=== PATIENT | female | born 1990 | race Caucasian/White ===

== ENCOUNTER 2016-05-21 20:10 | Emergency (ER) | payer MEDICAID ==
[2016-05-21 20:25] VITALS: BP 116/70
[2016-05-21] MEDS ORDERED: FAMOTIDINE 20 MG TABLET PO ONE (20:27)
[2016-05-21] MEDS ORDERED: DIPHENHYDRAMINE HCL 25 MG CAPSULE PO ONE (20:27)
[2016-05-21] MEDS ORDERED: DEXAMETHASONE SOD PHOS INJ 10 MG/1 ML VIAL IM ONE (20:28)
--- NOTE | 2016-05-21 20:30 | ER Document Report ---
ED Medical Screen (RME) - General Chief Complaint: Rash Stated Complaint: RASH Mode of Arrival: Ambulatory Information source: Patient Notes: Patient presents to the emergency department with reports of tick bite last week abscess on her stomach and hives that started Saturday. She reports vomited twice today. Denies nausea at this time. Denies history of allergies I have greeted and performed a rapid initial assessment of this patient. A comprehensive ED assessment and evaluation of the patient, analysis of test results and completion of the medical decision making process will be conducted by additional ED providers. Physical Exam - Vital signs Vitals: Temp Pulse Resp BP Pulse Ox 98.2 F 117 H 18 116/70 100 05/21/16 20:23 05/21/16 20:23 05/21/16 20:23 05/21/16 20:23 05/21/16 20:23 Course - Vital Signs Vital signs: Temp Pulse Resp BP Pulse Ox 98.2 F 117 H 18 116/70 100 05/21/16 20:23 05/21/16 20:23 05/21/16 20:23 05/21/16 20:23 05/21/16 20:23
[2016-05-22] MEDS ORDERED: DIPHENHYDRAMINE HCL 25 MG CAPSULE ONE (00:10)
[2016-05-22] MEDS ORDERED: DEXAMETHASONE SOD PHOSPHATE INJ 4 MG/1 ML VIAL ONE ×2 (00:11)
[2016-05-22] MEDS ORDERED: DIPHENHYDRAMINE HCL 25 MG CAPSULE PO ONE (00:15)
[2016-05-22] MEDS ORDERED: FAMOTIDINE 20 MG TABLET PO ONE (00:15)
[2016-05-22] MEDS ORDERED: DEXAMETHASONE SOD PHOS INJ 10 MG/1 ML VIAL IM ONE (00:15)
[2016-05-22] MEDS ORDERED: METHYLPREDNISOLONE INJ 125 MG/2 ML SDV IM ONE (00:44)
[2016-05-22] MEDS ORDERED: DIPHENHYDRAMINE HCL 50 MG/ML VIAL IM ONE (00:44)
[2016-05-22] MEDS ORDERED: SULFAMETHOXAZOLE/TRIMETHOPRIM 800-160 MG TABLET PO ONE (00:44)
[2016-05-22] MEDS ORDERED: HYDROCODONE/ACETAMINOPHEN 5-325 MG 6 TAB/DSPK PO PRN (00:44)
--- NOTE | 2016-05-22 00:44 | ER Document Report ---
ED Skin Rash/Insect Bite/Abscs - General Chief Complaint: Rash Stated Complaint: RASH Time seen by provider: 00:38 Mode of Arrival: Ambulatory Information source: Patient TRAVEL OUTSIDE OF THE [place] IN LAST 30 DAYS: No - HPI Patient complains to provider of: Skin rash/lesion, Tender/swollen area, Tick bite Onset: Other - 5 days Onset/Duration: Gradual, Persistent Quality of pain: Achy Severity: Mild Skin Character: Abscess, Lesion, Rash, Urticarial Skin Temperature: Warm Quality of rash: Itchy, Painful Identify cause: No Similar symptoms previously: No Recently seen / treated by doctor: No Notes: Patient is a 25 year old female who presents to the ER c/o itchy rash with hives diffusely, tick bite to left knee, and tender erythematous swelling to left abdominal wall, symptoms have been worsening over the past 5 days, no new detergents, lotions, foods, no h/o similar, patient reports recent tick bite to left knee, tick was not engorged, she does not believe it was attached for more then a few minutes, no fever, no injury - Related Data Allergies/Adverse Reactions: No Known Allergies Allergy (Verified 05/22/16 00:05) Past Medical History - General Information source: Patient - Social History Smoking Status: Unknown if Ever Smoked Family History: Reviewed & Not Pertinent Renal/ Medical History: Denies: Hx Peritoneal Dialysis Review of Systems - Review of Systems Constitutional: No symptoms reported EENT: No symptoms reported Cardiovascular: No symptoms reported Respiratory: No symptoms reported Gastrointestinal: No symptoms reported Genitourinary: No symptoms reported Female Genitourinary: No symptoms reported Musculoskeletal: No symptoms reported Skin: See HPI Hematologic/Lymphatic: No symptoms reported Neurological/Psychological: No symptoms reported -: Yes All other systems reviewed and negative Physical Exam - Vital signs Vitals: Temp Pulse Resp BP Pulse Ox 98.2 F 117 H 18 116/70 100 05/21/16 20:23 05/21/16 20:23 05/21/16 20:23 05/21/16 20:23 05/21/16 20:23 Interpretation: Normal - General General appearance: Appears well, Alert - HEENT Head: Normocephalic, Atraumatic Eyes: Normal Conjunctiva: Normal Extraocular movements intact: Yes Eyelashes: Normal Pupils: PERRL Pharynx: Normal Neck: Normal - Respiratory Respiratory status: No respiratory distress - Cardiovascular Rhythm: Regular - Abdominal Inspection: Other - 3cm tender, induration area to left abdominal wall, firm, no fluctuance, no drainage - Back Back: Normal, Nontender - Extremities General upper extremity: Normal ROM General lower extremity: Normal ROM - Neurological Neuro grossly intact: Yes Cognition: Normal Orientation: AAOx4 - Psychological Associated symptoms: Normal affect, Normal mood - Skin Skin Temperature: Warm Skin Moisture: Dry Skin irregularity: Abscess, Erythema Location of irregularity: Generalized, Abdomen, Extremities Character of irregularity: Erythematous Irregularity with: Induration Notes: left abdominal wall early abscess, diffuse urticarial rash, scabbed 2mm lesion to left medial knee Course - Vital Signs Vital signs: Temp Pulse Resp BP Pulse Ox 98.2 F 117 H 18 116/70 100 05/21/16 20:23 05/21/16 20:23 05/21/16 20:23 05/21/16 20:23 05/21/16 20:23 Discharge - Discharge Clinical Impression: Abdominal wall abscess, Urticaria Tick bite of knee Qualifiers: Encounter type: initial encounter Laterality: left Qualified Code(s): S80.262A - Insect bite (nonvenomous), left knee, initial encounter Condition: Stable Disposition: HOME, SELF-CARE Instructions: Abscess ([facility]), Oral Narcotic Medication ([facility]), Trimethoprim- Sulfa ([facility]), Acute Urticaria ([facility]), Tick Bites ([facility]) Additional Instructions: Follow up with your primary care provider in 2-3 days. Return to the ER immediately if symptoms worsen or any additional concerns. Prescriptions: Diphenhydramine HCl [Benadryl 25 Mg Capsule] 25 mg PO Q6 #30 capsule Famotidine [Pepcid 20 mg Tablet] 20 mg PO BID #12 tablet Hydrocodone/Acetaminophen [Hydrocodon-Acetaminophen 5-325] 1 each PO Q6 #20 tablet Prednisone 40 mg PO DAILY #8 tablet Sulfamethoxazole/Trimethoprim [Bactrim Ds Tablet] 1 each PO BID #20 tablet
== END 2016-05-22 00:55 | disposition home or self-care (01) ==
LOC: ER 20:10
DX: S80.262A Insect bite (nonvenomous), left knee, initial encounter (principal); W57.XXXA Bitten or stung by nonvenomous insect and other nonvenomous arthropods, initial encounter; L02.211 Cutaneous abscess of abdominal wall; L50.9 Urticaria, unspecified
CPT/HCPCS: 99282; 96372; J3490 ×2; J1100

== ENCOUNTER 2017-01-11 17:04 | Inpatient (IN) | payer SELFPAY ==
[2017-01-11] MEDS ORDERED: NORMAL SALINE 1000 ML 1,000 ML IV ONE ×3 (19:19→22:16)
[2017-01-11] MEDS ORDERED: ONDANSETRON HCL INJ/PF 4 MG/2 ML SDV IV ONE ×2 (19:19→23:12)
[2017-01-11] MEDS ORDERED: KETOROLAC TROMETHAMINE INJ/PF 30 MG/1 ML SDV IV ONE (19:19)
--- NOTE | 2017-01-11 19:21 | ER Document Report ---
ED GI/ - General Chief Complaint: Groin Pain Stated Complaint: PELVIC PAIN, BLURRED VISION Time Seen by Provider: 01/11/17 19:14 Notes: Patient is a 26-year-old female that comes emergency department for chief complaint of chills, 2 episodes of vomiting, and lower abdominal pain on both sides that wraps around towards her back. She states when she stands her vision gets blurry and she stood and passed out earlier. She denies headache or head injury. She denies dysuria, vaginal discharge, she states she has not been sexually for 2 months. LMP within the past month. She had a normal bowel movement earlier today. No hematemesis. Only past medical history reported is tonsillectomy and orthopedic surgery. Takes no daily medications. TRAVEL OUTSIDE OF THE [place] IN LAST 30 DAYS: No - Related Data Allergies/Adverse Reactions: No Known Allergies Allergy (Verified 05/22/16 00:05) Past Medical History - General Information source: Patient - Social History Smoking Status: Never Smoker Drug Abuse: None Lives with: Family Family History: Reviewed & Not Pertinent - Medical History Medical History: Negative Renal/ Medical History: Denies: Hx Peritoneal Dialysis Surgical Hx: Negative - Immunizations Immunizations up to date: Yes Hx Diphtheria, Pertussis, Tetanus Vaccination: Yes Review of Systems - Review of Systems Constitutional: No symptoms reported EENT: No symptoms reported Cardiovascular: No symptoms reported Respiratory: No symptoms reported Gastrointestinal: See HPI Genitourinary: See HPI Female Genitourinary: See HPI Musculoskeletal: No symptoms reported Skin: No symptoms reported Hematologic/Lymphatic: No symptoms reported Neurological/Psychological: No symptoms reported Physical Exam - Vital signs Vitals: Temp Pulse Resp BP 100.3 F 118 H 18 118/77 01/11/17 17:24 01/11/17 17:24 01/11/17 17:24 01/11/17 17:24 Interpretation: Normal - General General appearance: Other - patient alert but slightly pale and ill appearing - HEENT Head: Normocephalic, Atraumatic Eyes: Normal Pupils: PERRL - Respiratory Respiratory status: No respiratory distress Chest status: Nontender Breath sounds: Normal Chest palpation: Normal - Cardiovascular Rhythm: Regular, Tachycardia Heart sounds: Normal auscultation, S1 appreciated, S2 appreciated Murmur: No - Abdominal Inspection: Normal Distension: No distension Bowel sounds: Normal Tenderness: Tender - Tender in the lower abdomen/pelvic region bilaterally, otherwise soft and benign abdomen. No: Guarding Organomegaly: No organomegaly - Genitourinary External exam: Normal Speculum exam: Vaginal discharge - Moderately large amount of discolored vaginal discharge. No: Cervix open Vaginal bleeding: None Bimanuel exam: Cervical motion tender - Back Back: Normal, Nontender - Extremities General upper extremity: Normal inspection, Nontender, Normal color, Normal ROM , Normal temperature General lower extremity: Normal inspection, Nontender, Normal color, Normal ROM , Normal temperature, Normal weight bearing. No: Yari's sign - Neurological Neuro grossly intact: Yes Cognition: Normal Orientation: AAOx4 [place] Coma Scale Eye Opening: Spontaneous [place] Coma Scale Verbal: Oriented Fran Coma Scale Motor: Obeys Commands Fran Coma Scale Total: 15 Speech: Normal Motor strength normal: LUE, RUE, LLE, RLE Sensory: Normal - Psychological Associated symptoms: Normal affect, Normal mood - Skin Skin Temperature: Warm Skin Moisture: Dry Skin Color: Pale Course - Re-evaluation Re-evalutation: Patient initially with low-grade fever, tachycardic at about 120, has bilateral lower abdominal/pelvic tenderness on examination, no guarding on either particular side. She is generally ill-appearing. CBC shows leukocytosis at 16.5 with elevation of neutrophils but no bandemia. Chemistry generally unremarkable. Urinalysis shows moderate leukocyte esterase and a few white blood cells and is otherwise unremarkable. She has no CVA tenderness. I suspect a pelvic source. Pelvic examination shows vaginal discharge with cervical motion tenderness. 4+ white blood cells. Urine Rocephin, doxycycline. Ultrasound will be performed to rule out tubo-ovarian abscess or other concerning surgical abnormality. Patient given pain medication for procedure to be performed. She is borderline hypotensive but her heart rate has significantly improved and her blood pressure is not concerning the low. She states she does feel improved. Fever has resolved after Toradol. Discussed patient with Dr. Niño. [employer]IVER will be consulted after ultrasound. Ultrasound showing no tubo-ovarian abscess or other surgical abnormality. Called and spoke with Dr. Pena, gynecology on-call, because of patient's fever, initial tachycardia, borderline hypotension, passing out at home, and obvious PID infection patient will be admitted to the hospital for additional treatment. Patient states full agreement with this plan, states she is uncomfortable going home. - Vital Signs Vital signs: Temp Pulse Resp BP Pulse Ox 97.7 F 90 16 105/61 100 01/12/17 03:46 01/12/17 03:46 01/12/17 03:46 01/12/17 03:46 01/12/17 03:46 - Laboratory Result Diagrams: 01/11/17 19:45 01/11/17 19:45 Laboratory results interpreted by me: 01/11/17 01/11/17 01/11/17 19:45 20:10 20:55 WBC 16.5 H Plt Count 123 L Seg Neutrophils % 85.7 H Lymphocytes % 8.1 L Absolute Neutrophils 14.1 H Urine Protein 30 H Urine Ketones 80 H Ur Leukocyte Esterase MODERATE H N.gonorrhoeae DNA (PCR) DETECTED H Discharge - Discharge Clinical Impression: PID (acute pelvic inflammatory disease), Gonorrhea, Tachycardia Fever Qualifiers: Fever type: unspecified Qualified Code(s): R50.9 - Fever, unspecified Condition: Stable Disposition: ADMITTED INPATIENT Admitting Provider: [facility] Admitted: Telemetry
[2017-01-11 20:16] LABS: ABSOLUTE LYMPHOCYTES (AUTO) 1.3 10^3/uL (0.5-4.7); ABSOLUTE NEUT (AUTO) 14.1 10^3/uL (1.7-8.2); BASOPHILS % (AUTO) 0.3 % (0-2); HEMATOCRIT 36.2 % (36.0-47.0); HGB HCT DIFFERENCE -0.2; LYMPHOCYTES % (AUTO) 8.1 % (13-45); MEAN CORPUSCULAR HEMOGLOBIN 28.7 pg (27.0-33.4); MEAN CORPUSCULAR HGB CONC 33.2 g/dL (32.0-36.0); MEAN CORPUSCULAR VOLUME 86 fl (80-97); MONOCYTES % (AUTO) 5.9 % (3-13); RED BLOOD COUNT 4.19 10^6/uL (3.72-5.28); RED CELL DISTRIBUTION WIDTH 13.4 % (11.5-14.0); SEGMENTED NEUTROPHILS % (AUTO) 85.7 % (42-78); WHITE BLOOD COUNT 16.5 10^3/uL (4.0-10.5)
[2017-01-11 20:30] LABS: ALANINE AMINOTRANSFERASE 26 U/L (9-52); ALBUMIN 4.5 g/dL (3.5-5.0); ALKALINE PHOSPHATASE 73 U/L (38-126); ANION GAP 15 (5-19); ASPARTATE AMINO TRANSFERASE 21 U/L (14-36); BILIRUBIN,DIRECT 0.4 mg/dL (0.0-0.4); BILIRUBIN,TOTAL 1.2 mg/dL (0.2-1.3); BLOOD UREA NITROGEN 11 mg/dL (7-20); CALCIUM 9.3 mg/dL (8.4-10.2); CARBON DIOXIDE 23 mmol/L (22-30); CHLORIDE 103 mmol/L (98-107); CREATININE RESULT 0.69 mg/dL (0.52-1.25); GLUCOSE 85 mg/dL (75-110); POTASSIUM 3.9 mmol/L (3.6-5.0); TOTAL PROTEIN 7.2 g/dL (6.3-8.2)
[2017-01-11] MEDS ORDERED: CEFTRIAXONE 1 GM/D5W RTU 1 GM/50 ML RTUPB IV ONE (21:06)
[2017-01-11] MEDS ORDERED: DOXYCYCLINE HYCLATE 100 MG TABLET PO ONE (21:07)
[2017-01-11 21:34] LABS: APPEARANCE,URINE SLIGHTLY-CLOUDY; BILIRUBIN,URINE NEGATIVE (NEGATIVE); GLUCOSE, URINE NEGATIVE (NEGATIVE); KETONES,URINE 80 mg/dL (NEGATIVE); LEUKOCYTE ESTERASE,URINE MODERATE (NEGATIVE); NITRITE,URINE NEGATIVE (NEGATIVE); PROTEIN,URINE 30 mg/dL (NEGATIVE); URINE SPECIFIC GRAVITY 1.025; UROBILINOGEN,URINE NEGATIVE mg/dL (<2.0)
[2017-01-11 22:02] LABS: CHLAM PCR NOT DETECTED (NOT DETECT)
[2017-01-11] MEDS ORDERED: FENTANYL CITRATE INJ/PF 100 MCG/2 ML AMPUL IV ONE ×2 (23:12→23:14)
--- NOTE | 2017-01-12 00:45 | RADIOLOGY REPORT (SQ) ---
EXAM DESCRIPTION: U/S NON OB PEL TV W/DOPPLER CLINICAL HISTORY: 26 years Female, ? TOA with pelvic inflammatory disease COMPARISON: None. TECHNIQUE: Complete transvaginal obstetrical ultrasound.] Doppler imaging of the ovaries. FINDINGS: Uterus measures 8.9 x 6.7 x 4.4 cm. Endometrium measures 0.2 cm. Small amount of fluid in the endometrial canal. The cervix measures 2.7 cm. No myometrial abnormalities. The right ovary measures 3.7 x 2.3 x 2.9 cm. The left ovary measures 3.5 x 2.9 x 2.4 cm. Color and spectral Doppler images demonstrate flow in the ovaries bilaterally. Small amount of free pelvic fluid. No adnexal mass or fluid collection identified. IMPRESSION: 1. Tiny amount of fluid in the endometrium. This could be related to menses, cervical stenosis, or inflammatory/infection. 2. Small amount of free pelvic fluid. No well-circumscribed abscess identified.
[2017-01-12] MEDS ORDERED: ACETAMINOPHEN 325 MG TABLET PO PRN (03:31)
[2017-01-12] MEDS ORDERED: OXYCODONE-ACETAMINOPHEN 5-325 MG TABLET PO PRN (03:31)
[2017-01-12] MEDS ORDERED: IBUPROFEN 800 MG TABLET PO PRN (03:32)
[2017-01-12] MEDS ORDERED: CEFTRIAXONE 1 GM/D5W RTU 1 GM/50 ML RTUPB IV SCH (04:00)
[2017-01-12] MEDS ORDERED: INFLUENZA ADLT QUAD (36MOS+) 2017-18 VAC 0.5 ML SYR IM PRN (04:15)
[2017-01-12] MEDS: DEXTROSE 5%-LACTATED RINGERS 1,000 ML IV PRN ×2 (04:28→14:56)
[2017-01-12] MEDS: METRONIDAZOLE 500 MG/NS RTU 100 ML IV SCH ×2 (05:33→17:05)
[2017-01-12] MEDS: CEFTRIAXONE 1 GM/D5W RTU 1 GM/50 ML RTUPB IV SCH ×2 (08:49→22:18)
[2017-01-12] MEDS ORDERED: DOXYCYCLINE HYCLATE INJ 100 MG VIAL IV SCH (16:30)
[2017-01-12] MEDS ORDERED: ONDANSETRON HCL INJ/PF 4 MG/2 ML SDV IV PRN (16:32)
--- NOTE | 2017-01-12 16:38 | PDOC PROGRESS REPORT ---
Subjective-OB Subjective: Post Delivery Day: 26 year old. Denies any needs at this time. Pain improved. Feels nauseous. Physical Exam (OB) Vital Signs: Temp Pulse Resp BP Pulse Ox 98.0 F 74 16 104/70 100 01/12/17 16:13 01/12/17 16:13 01/12/17 16:13 01/12/17 16:13 01/12/17 16:13 - General General Appearance: Appears well, Alert - Abdomen Hernia Present: No Assessment and Plan(PN) - Assessment and Plan (1) Gonorrhea Is this a current diagnosis for this admission?: Yes Plan: Adequately treated with Rocephin. (2) PID (acute pelvic inflammatory disease) Is this a current diagnosis for this admission?: Yes Plan: Doxycycline 100mg IV bid added. Since pain has improved, consider d/c in AM on continued po antibiotics.
[2017-01-12] MEDS ORDERED: ONDANSETRON HCL INJ/PF 4 MG/2 ML SDV ONE (16:58)
[2017-01-12] MEDS ORDERED: DOXYCYCLINE HYCLATE INJ 100 MG VIAL IV PRN (17:06)
[2017-01-12] MEDS ORDERED: DOXYCYCLINE HYCLATE INJ 100 MG VIAL ONE (19:02)
[2017-01-12] MEDS: DOXYCYCLINE HYCLATE 100 MG in DEXTROSE 5%-WATER 250 ML IV SCH (19:59)
[2017-01-13] MEDS: DEXTROSE 5%-LACTATED RINGERS 1,000 ML IV PRN (00:28)
[2017-01-13] MEDS ORDERED: DOXYCYCLINE HYCLATE INJ 100 MG VIAL ONE (02:52)
[2017-01-13] MEDS: METRONIDAZOLE 500 MG/NS RTU 100 ML IV SCH (05:32)
[2017-01-13 06:33] LABS: HEMATOCRIT 28.7 % (36.0-47.0); HGB HCT DIFFERENCE 1.3; MEAN CORPUSCULAR HGB CONC 34.7 g/dL (32.0-36.0); MEAN CORPUSCULAR VOLUME 87 fl (80-97); RED BLOOD COUNT 3.32 10^6/uL (3.72-5.28); RED CELL DISTRIBUTION WIDTH 13.4 % (11.5-14.0); WHITE BLOOD COUNT 4.9 10^3/uL (4.0-10.5)
[2017-01-13] MEDS: DOXYCYCLINE HYCLATE 100 MG in DEXTROSE 5%-WATER 250 ML IV SCH (06:44)
--- NOTE | 2017-01-13 08:29 | PDOC PROGRESS REPORT ---
Subjective Progress Note for:: 01/13/17 Physical Exam - Physical Exam Vital Signs: Temp Pulse Resp BP Pulse Ox 98.3 F 63 16 101/71 100 01/13/17 07:39 01/13/17 07:39 01/13/17 07:39 01/13/17 07:39 01/13/17 07:39 Intake & Output 01/12/17 01/13/17 01/14/17 06:59 06:59 06:59 Intake Total 480 Balance 480 General appearance: PRESENT: no acute distress GI/Abdominal exam: PRESENT: normal bowel sounds, soft. ABSENT: distended, guarding, mass, organolmegaly, rebound, tenderness Neurological exam: PRESENT: alert Psychiatric exam: PRESENT: appropriate affect - Gynecological Exam Labia: normal Urethra: normal Introitus: normal Perineum: normal Vagina: normal Cervix: normal Cervix: normal Uterus: normal Adhexa: normal Result Laboratory Results: 01/13/17 06:21 01/13/17 06:21 WBC 4.9 RBC 3.32 L Hgb 10.0 L Hct 28.7 L MCV 87 MCH 30.0 MCHC 34.7 RDW 13.4 Plt Count 90 L Impressions: Transvaginal US 01/11/17 23:12 IMPRESSION: 1. Tiny amount of fluid in the endometrium. This could be related to menses, cervical stenosis, or inflammatory/infection. 2. Small amount of free pelvic fluid. No well-circumscribed abscess identified. Assessment & Plan - Diagnosis (1) Fever Qualifiers: Fever type: unspecified Qualified Code(s): R50.9 - Fever, unspecified (2) Gonorrhea Is this a current diagnosis for this admission?: Yes (3) PID (acute pelvic inflammatory disease) Is this a current diagnosis for this admission?: Yes - Time Time Spent with patient: 15-24 minutes - Plan Summary Plan Summary: d/c f/u 2 weeks
[2017-01-13] MEDS: CEFTRIAXONE 1 GM/D5W RTU 1 GM/50 ML RTUPB IV SCH (09:01)
[2017-01-13 09:30] VITALS: BP 118/77
--- NOTE | 2017-01-13 09:53 | DISCHARGE SUMMARY E ---
Discharge Summary NAME: JOSEPH HOPE : 1990 AGE: 26Y ADMITTED: 01/12/2017 DISCHARGED: 01/13/2017 ADMISSION DIAGNOSES: 1. Pelvic inflammatory disease. 2. Salpingitis with positive Gonorrhea. DISCHARGE DIAGNOSES: 1. Pelvic inflammatory disease. 2. Salpingitis with positive Gonorrhea. SUMMARY: The patient is a 26-year-old female admitted from the ER with an elevated white count of 16.5 and positive and Gonorrhea, admitted for presumptive diagnosis of salpingitis. The patient was placed on IV antibiotics and rapidly defervesced and has remained afebrile throughout her hospital course. Her white count on January 13 is 4.9. Physical exam is completely normal. The patient is being discharged with followup in 2 weeks. Discharged on Motrin 800 three times a day p.r.n.; Vibramycin 100 twice a day for 14 days and Flagyl 500 b.i.d. for 14 days. She was also given post hospital instructions. DICTATING PHYSICIAN: Ron RICHARDSON M.D. [id number] PHY#: [id number] ID: [id number] JOB#: [id number] ACCT: [id number] cc:Ron RICHARDSON M.D. >
[2017-01-13] MEDS ORDERED: DOXYCYCLINE HYCLATE 100 MG TABLET PO SCH ×2 (10:00→22:00)
== END 2017-01-13 11:22 | disposition home or self-care (01) | DRG 759 ==
LOC: ER 17:04 → EH 01-12 01:09 → 5 01-12 02:48 → 2N 01-12 03:42
PROVIDERS: ADMIT Obstetrics & Gynecology Gynecology; ATTEND Obstetrics & Gynecology Gynecology
PROC: 3E0234Z Introduction of Serum, Toxoid and Vaccine into Muscle, Percutaneous Approach (ICD-10-PCS; principal; 2017-01-13)
DX: A54.24 Gonococcal female pelvic inflammatory disease (principal); Z23 Encounter for immunization
CPT/HCPCS: 36415; 76830; 80053; 81001; 81025; 83605; 85025; 85027; 87040; 87210; 87491; 87591; 90686; 93976; 96361; 96365; 96375; 99285; J0696; J1885; J2405; J3010; J3490; J7030; J7060

== ENCOUNTER 2017-11-13 12:17 | Emergency (ER) | payer SELFPAY ==
[2017-11-13] MEDS ORDERED: NORMAL SALINE 1000 ML 1,000 ML IV ONE (13:39)
[2017-11-13] MEDS ORDERED: NORMAL SALINE 1000 ML 1,000 ML IV PRN (13:39)
[2017-11-13] MEDS ORDERED: ACETAMINOPHEN 325 MG TABLET PO ONE (13:40)
--- NOTE | 2017-11-13 13:41 | ER Document Report ---
ED Medical Screen (RME) - General Chief Complaint: Chest Pain Stated Complaint: CHEST PAIN Time Seen by Provider: 11/13/17 13:34 Notes: 27 years old female presents today with multiple complaints, 2 weeks ago apparently she was walking to the bathroom and passed out and woke up with sweating according to her. Witnessed by her daughter. Since then having general malaise fatigue weakness tiredness nausea difficulty in breathing. Exertional shortness notes breath and fatigue weakness. TRAVEL OUTSIDE OF THE [place] IN LAST 30 DAYS: No - Related Data Allergies/Adverse Reactions: No Known Allergies Allergy (Verified 11/13/17 12:22) Past Medical History Renal/ Medical History: Denies: Hx Peritoneal Dialysis Past Surgical History: Reports: Hx Orthopedic Surgery - Rt ankle; Lt elbow, Hx Tonsillectomy - Immunizations Immunizations up to date: Yes Hx Diphtheria, Pertussis, Tetanus Vaccination: Yes History of Influenza Vaccine for 11/2016 - 04/2017 Season: No Physical Exam - Vital signs Vitals: Temp Pulse Resp BP Pulse Ox 97.6 F 91 18 125/79 100 11/13/17 12:30 11/13/17 12:30 11/13/17 12:30 11/13/17 12:30 11/13/17 12:30 Course - Vital Signs Vital signs: Temp Pulse Resp BP Pulse Ox 97.6 F 91 18 125/79 100 11/13/17 12:30 11/13/17 12:30 11/13/17 12:30 11/13/17 12:30 11/13/17 12:30
--- NOTE | 2017-11-13 14:21 | RADIOLOGY REPORT (SQ) ---
EXAM DESCRIPTION: CHEST 2 VIEWS COMPLETED DATE/TIME: 11/13/2017 2:14 pm REASON FOR STUDY: Shortness of breath COMPARISON: None. EXAM PARAMETERS: NUMBER OF VIEWS: two views TECHNIQUE: Digital Frontal and Lateral radiographic views of the chest acquired. RADIATION DOSE: NA LIMITATIONS: none FINDINGS: LUNGS AND PLEURA: No opacities, masses or pneumothorax. No pleural effusion. MEDIASTINUM AND HILAR STRUCTURES: No masses or contour abnormalities. HEART AND VASCULAR STRUCTURES: Heart normal size. No evidence for failure. BONES: No acute findings. HARDWARE: None in the chest. OTHER: No other significant finding. IMPRESSION: NO ACUTE RADIOGRAPHIC FINDING IN THE CHEST. TECHNICAL DOCUMENTATION: JOB ID: [id number] [employer]- All Rights Reserved Reading location - IP/workstation name: [email or web address]
--- NOTE | 2017-11-13 14:44 | RADIOLOGY REPORT (SQ) ---
EXAM DESCRIPTION: CT HEAD WITHOUT COMPLETED DATE/TIME: 11/13/2017 2:32 pm REASON FOR STUDY: Headache COMPARISON: None. TECHNIQUE: Axial images acquired through the brain without intravenous contrast. Images reviewed wi th bone, brain and subdural windows. Additional sagittal and coronal reconstructions were generated. Images stored on PACS. All CT scanners at this facility use dose modulation, iterative reconstruction, and/or weight based d osing when appropriate to reduce radiation dose to as low as reasonably achievable (ALARA). [facility]: Dose Right [facility]: CareDose [facility]: Dose Right [facility]: Teradose 4D [facility]: [employer] RADIATION DOSE: CT Rad equipment meets quality standard of care and radiation dose reduction techniq ues were employed. CTDIvol: 53.2 mGy. DLP: 937 mGy-cm. mGy. LIMITATIONS: None. FINDINGS: VENTRICLES: Normal size and contour. CEREBRUM: No masses. No hemorrhage. No midline shift. No evidence for acute infarction. Normal gra y/white matter differentiation. No areas of low density in the white matter. CEREBELLUM: No masses. No hemorrhage. No alteration of density. No evidence for acute infarction. EXTRAAXIAL SPACES: No fluid collections. No masses. ORBITS AND GLOBE: No intra- or extraconal masses. Normal contour of globe without masses. CALVARIUM: No fracture. PARANASAL SINUSES: Mucosal polyp retention cyst is identified in the sphenoid sinus. SOFT TISSUES: No mass or hematoma. OTHER: No other significant finding. IMPRESSION: NORMAL BRAIN CT WITHOUT CONTRAST. Mucosal polyp or retention cyst is identified in the sphenoid sinus. Other findings as noted above EVIDENCE OF ACUTE STROKE: NO. COMMENT: Quality ID # [id number]: Final reports with documentation of one or more dose reduction techniques (e.g., Automated exposure control, adjustment of the mA and/or kV according to patient size, use of iterative reconstruction technique) TECHNICAL DOCUMENTATION: JOB ID: [id number] [employer]- All Rights Reserved Reading location - IP/workstation name: [email or web address]
[2017-11-13 14:56] LABS: ABSOLUTE BASOPHILS # (AUTO) 0.1 10^3/uL (0.0-0.2); ABSOLUTE EOSINOPHILS # (AUTO) 0.1 10^3/uL (0.0-0.6); ABSOLUTE LYMPHOCYTES (AUTO) 1.9 10^3/uL (0.5-4.7); ABSOLUTE MONOCYTES (AUTO) 0.4 10^3/uL (0.1-1.4); ABSOLUTE NEUT (AUTO) 5.3 10^3/uL (1.7-8.2); BASOPHILS % (AUTO) 0.9 % (0-2); EOSINOPHILS % (AUTO) 1.5 % (0-6); HEMATOCRIT 39.1 % (36.0-47.0); HEMOGLOBIN 13.2 g/dL (12.0-15.5); LYMPHOCYTES % (AUTO) 24.3 % (13-45); MEAN CORPUSCULAR HEMOGLOBIN 29.8 pg (27.0-33.4); MEAN CORPUSCULAR HGB CONC 33.8 g/dL (32.0-36.0); MEAN CORPUSCULAR VOLUME 88 fl (80-97); MONOCYTES % (AUTO) 5.4 % (3-13); PLATELET COUNT 218 10^3/uL (150-450); RED BLOOD COUNT 4.44 10^6/uL (3.72-5.28); RED CELL DISTRIBUTION WIDTH 12.9 % (11.5-14.0); SEGMENTED NEUTROPHILS % (AUTO) 67.9 % (42-78); TOTAL CELLS COUNTED % (AUTO) 100 %; WHITE BLOOD COUNT 7.7 10^3/uL (4.0-10.5)
[2017-11-13 15:10] LABS: ALANINE AMINOTRANSFERASE 15 U/L (9-52); ALBUMIN 4.5 g/dL (3.5-5.0); ALKALINE PHOSPHATASE 54 U/L (38-126); ANION GAP 11 (5-19); ASPARTATE AMINO TRANSFERASE 23 U/L (14-36); BILIRUBIN,DIRECT 0.3 mg/dL (0.0-0.4); BILIRUBIN,TOTAL 0.8 mg/dL (0.2-1.3); BLOOD UREA NITROGEN 12 mg/dL (7-20); CALCIUM 9.7 mg/dL (8.4-10.2); CARBON DIOXIDE 26 mmol/L (22-30); CHLORIDE 104 mmol/L (98-107); GLUCOSE 101 mg/dL (75-110); POTASSIUM 3.7 mmol/L (3.6-5.0); SODIUM 141.3 mmol/L (137-145); TOTAL PROTEIN 8.3 g/dL (6.3-8.2)
[2017-11-13] MEDS ORDERED: KETOROLAC TROMETHAMINE INJ/PF 30 MG/1 ML SDV IV ONE (16:05)
--- NOTE | 2017-11-13 16:07 | ER Document Report ---
ED General - General Chief Complaint: Chest Pain Stated Complaint: CHEST PAIN Time Seen by Provider: 11/13/17 13:34 TRAVEL OUTSIDE OF THE [place] IN LAST 30 DAYS: No - HPI Patient complains to provider of: Chest pain numbness tingling Notes: Patient coming in for chest pain numbness and tingling. Patient states symptoms ongoing for greater than a week. Patient states also having shortness of breath. Denies any associated anxiety states symptoms are in. Patient denies any fevers chills nausea vomiting diarrhea denies any recent URIs recent travel. Patient denies any medical issues. Resting healthy upon my evaluation. - Related Data Allergies/Adverse Reactions: No Known Allergies Allergy (Verified 11/13/17 12:22) Past Medical History - Social History Smoking Status: Never Smoker Family History: Reviewed & Not Pertinent Patient has suicidal ideation: No Patient has homicidal ideation: No Renal/ Medical History: Denies: Hx Peritoneal Dialysis Past Surgical History: Reports: Hx Orthopedic Surgery - Rt ankle; Lt elbow, Hx Tonsillectomy - Immunizations Immunizations up to date: Yes Hx Diphtheria, Pertussis, Tetanus Vaccination: Yes Review of Systems - Review of Systems Constitutional: No symptoms reported EENT: No symptoms reported Cardiovascular: No symptoms reported Respiratory: No symptoms reported Gastrointestinal: No symptoms reported Genitourinary: No symptoms reported Female Genitourinary: No symptoms reported Musculoskeletal: No symptoms reported Skin: No symptoms reported Hematologic/Lymphatic: No symptoms reported Neurological/Psychological: No symptoms reported Physical Exam - Vital signs Vitals: Temp Pulse BP Pulse Ox 97.6 F 91 125/79 100 11/13/17 12:29 11/13/17 12:29 11/13/17 12:29 11/13/17 12:29 Interpretation: Normal - General General appearance: Appears well, Alert - HEENT Head: Normocephalic, Atraumatic Eyes: Normal Pupils: PERRL - Respiratory Respiratory status: No respiratory distress Chest status: Tender - Tenderness palpation of the chest wall Breath sounds: Normal Chest palpation: Normal - Cardiovascular Rhythm: Regular Heart sounds: Normal auscultation Murmur: No - Abdominal Inspection: Normal Distension: No distension Bowel sounds: Normal Tenderness: Nontender Organomegaly: No organomegaly - Back Back: Normal, Nontender - Extremities General upper extremity: Normal inspection, Nontender, Normal color, Normal ROM , Normal temperature General lower extremity: Normal inspection, Nontender, Normal color, Normal ROM , Normal temperature, Normal weight bearing. No: Yari's sign - Neurological Neuro grossly intact: Yes Cognition: Normal Orientation: AAOx4 [place] Coma Scale Eye Opening: Spontaneous [place] Coma Scale Verbal: Oriented Fran Coma Scale Motor: Obeys Commands Fran Coma Scale Total: 15 Speech: Normal Motor strength normal: LUE, RUE, LLE, RLE Sensory: Normal - Psychological Associated symptoms: Normal affect, Normal mood - Skin Skin Temperature: Warm Skin Moisture: Dry Skin Color: Normal Course - Re-evaluation Re-evalutation: 11/13/17 19:04 The patient has atypical chest pain as the patient's chest pain is not suggestive of pulmonary embolus, cardiac ischemia, aortic dissection, or other serious etiology. Given the extremely low risk of these diagnoses further testing and evaluation for these possibilities does not appear to be indicated at this time. The patient has been instructed to return if the symptoms worsen or change in any way. - Vital Signs Vital signs: Temp Pulse Resp BP Pulse Ox 98.8 F 89 20 121/79 100 11/13/17 16:18 11/13/17 16:18 11/13/17 16:18 11/13/17 16:18 11/13/17 16:18 - Laboratory Result Diagrams: 11/13/17 14:35 11/13/17 14:35 Laboratory results interpreted by me: 11/13/17 14:35 Total Protein 8.3 H Discharge - Discharge Clinical Impression: Chest wall pain, Numbness Condition: Good Disposition: HOME, SELF-CARE Instructions: Anxiety ([facility]), Chest Wall Pain ([facility]), Numbness or Paresthesia ( [facility]) Additional Instructions: Your laboratory studies EKG head CT chest x-ray did not show any signs of cardiac ischemia infection or any worrisome etiology for your symptoms. I will highly recommend following up with the [facility] listed on your discharge papers. Please take medication as prescribed. Return to ER symptoms worsen. Prescriptions: Ibuprofen [Motrin 600 mg Tablet] 600 mg PO Q8HP PRN #21 tablet PRN Reason:
[2017-11-13 16:31] LABS: APPEARANCE,URINE CLEAR; BILIRUBIN,URINE NEGATIVE (NEGATIVE); COLOR,URINE YELLOW; GLUCOSE, URINE NEGATIVE (NEGATIVE); KETONES,URINE NEGATIVE (NEGATIVE); LEUKOCYTE ESTERASE,URINE NEGATIVE (NEGATIVE); NITRITE,URINE NEGATIVE (NEGATIVE); PROTEIN,URINE NEGATIVE (NEGATIVE); URINE SPECIFIC GRAVITY 1.016; UROBILINOGEN,URINE NEGATIVE mg/dL (<2.0)
[2017-11-13 16:36] LABS: URINE AMPHETAMINES SCREEN NEGATIVE; URINE BARBITURATES SCREEN NEGATIVE; URINE BENZODIAZEPINES SCREEN NEGATIVE; URINE COCAINE SCREEN NEGATIVE; URINE MARIJUANA (THC) SCREEN NEGATIVE; URINE METHADONE SCREEN NEGATIVE; URINE PHENCYCLIDINE SCREEN NEGATIVE
[2017-11-13 16:39] VITALS: BP 125/79
--- NOTE | 2017-11-13 22:29 | EKG REPORT ---
SEVERITY:- NORMAL ECG - SINUS RHYTHM : Confirmed by: Isela Barcenas MD 13-Nov-2017 22:28:08
== END 2017-11-13 16:39 | disposition home or self-care (01) ==
LOC: ER 12:17
DX: R07.89 Other chest pain (principal); R20.0 Anesthesia of skin
CPT/HCPCS: 93005; 99285; 36415; 85025; 81025; 80053; 81001; 80307; 85379; 71046; 70450; 93010; J1885

== ENCOUNTER → 2018-08-11 | Outpatient (CLI) | payer MEDICAID | LOC: OD 15:56 | PROVIDERS: ATTEND Otolaryngology | DX: J30.9 Allergic rhinitis, unspecified (principal) | CPT/HCPCS: 36415; 82785; 86003 ==

== ENCOUNTER → 2018-08-15 | Outpatient (CLI) | payer MEDICAID ==
[2018-08-15 09:25] LABS: ABSOLUTE BASOPHILS # (AUTO) 0.1 10^3/uL (0.0-0.2); ABSOLUTE EOSINOPHILS # (AUTO) 0.5 10^3/uL (0.0-0.6); ABSOLUTE MONOCYTES (AUTO) 0.4 10^3/uL (0.1-1.4); ABSOLUTE NEUT (AUTO) 3.3 10^3/uL (1.7-8.2); BASOPHILS % (AUTO) 1.1 % (0-2); EOSINOPHILS % (AUTO) 7.5 % (0-6); HEMATOCRIT 37.5 % (36.0-47.0); HEMOGLOBIN 12.6 g/dL (12.0-15.5); LYMPHOCYTES % (AUTO) 31.9 % (13-45); MEAN CORPUSCULAR HEMOGLOBIN 29.5 pg (27.0-33.4); MEAN CORPUSCULAR HGB CONC 33.5 g/dL (32.0-36.0); MEAN CORPUSCULAR VOLUME 88 fl (80-97); MONOCYTES % (AUTO) 6.2 % (3-13); PLATELET COUNT 161 10^3/uL (150-450); RED BLOOD COUNT 4.27 10^6/uL (3.72-5.28); RED CELL DISTRIBUTION WIDTH 12.8 % (11.5-14.0); SEGMENTED NEUTROPHILS % (AUTO) 53.3 % (42-78); TOTAL CELLS COUNTED % (AUTO) 100 %; WHITE BLOOD COUNT 6.1 10^3/uL (4.0-10.5)
[2018-08-15 09:57] LABS: ALANINE AMINOTRANSFERASE 17 U/L (9-52); ALBUMIN 4.3 g/dL (3.5-5.0); ALKALINE PHOSPHATASE 55 U/L (38-126); ANION GAP 9 (5-19); ASPARTATE AMINO TRANSFERASE 17 U/L (14-36); BILIRUBIN,DIRECT 0.2 mg/dL (0.0-0.4); BILIRUBIN,TOTAL 0.4 mg/dL (0.2-1.3); BLOOD UREA NITROGEN 13 mg/dL (7-20); CALCIUM 9.5 mg/dL (8.4-10.2); CARBON DIOXIDE 26 mmol/L (22-30); CHLORIDE 106 mmol/L (98-107); CHOLESTEROL 214.66 mg/dL (0-200); GLUCOSE 81 mg/dL (75-110); POTASSIUM 4.9 mmol/L (3.6-5.0); TOTAL PROTEIN 7.2 g/dL (6.3-8.2); TRIGLYCERIDES 87 mg/dL (<150)
[2018-08-15 10:08] LABS: DIRECT LDL 127 mg/dL (<100)
== END ==
LOC: OD 09:00
PROVIDERS: ATTEND Family Medicine Geriatric Medicine
DX: E66.3 Overweight (principal); F41.9 Anxiety disorder, unspecified; R51 Headache; Z79.899 Other long term (current) drug therapy
CPT/HCPCS: 36415; 80053; 80061; 84443; 85025

== ENCOUNTER → 2018-10-01 | Outpatient (CLI) | payer MEDICAID ==
[~2018-10-01] MED LIST: ALBUTEROL SULFATE 0.083% NEB 2.5 MG/3 ML AMPUL NEB ONE
--- NOTE | 2018-10-01 15:35 | Pulmonary Function Test ---
Pulmonary Function Test Date of Procedure:: 10/01/18 INDICATION:: Dyspnea Referring Provider: Publication Director: Loreta Conn, [employer], [place] - Report Spirometry: Spirometry: pre-FVC: 3.68 L 107% post-FVC 3.71 L 107% pre-FEV:1 2.20 L 74% post-FEV1:2.32 L 78% pre-FEV1/FVC % 60 post-FEV1/FVC% 63 predicted 87 [id number]% 1.62 L 46% [id number]% 1.72 L 48% Lung Volume: Total lung capacity: 4.63 L 93% Vital capacity: 3.68 L 107% Inspiratory capacity: 2.23 L FRC N2: 2.40 L 95% ERV: 0.36 L RV: 0.95 L 65% RV/TLC %: 20 predicted 29 Diffusion Capactity: DLCO: 24.1 98% DLCO/VA: 5.44 116% Impression: Mild obstructive ventilatory defect. Insignificant response to bronchodilator therapy. This in and of itself does not preclude a clinical trial of bronchodilator therapy. No restrictive ventilatory defect. No hyperinflation or air trapping. Normal diffusion capacity.
== END ==
LOC: RT 09:18
PROVIDERS: ATTEND Family Medicine Geriatric Medicine
DX: R06.2 Wheezing (principal)
CPT/HCPCS: 94060; 94727; 94729; 94761